=== PATIENT | female | born 1940 | race Caucasian/White ===

== ENCOUNTER 2022-02-03 23:06 | Inpatient (IN) | payer OTHER ==
[~2022-02-03] VITALS: Ht 160 cm; Wt 84.1 kg
[2022-02-04 00:02] LABS: Basophils # (auto) 0 10 ^3/uL (0-0.2); Basophils % (auto) 0.2 % (0.0-2.0); Eosinophils # (auto) 0 10 ^3/uL (0-0.8); Eosinophils % (auto) 0.1 % (0.0-7.0); Hematocrit 42.3 % (36.0-46.0); Hemoglobin 14.1 g/dL (12.2-16.2); Lymphocytes # (auto) 0.4 10 ^3/uL (0.4-5.4); Lymphocytes % (auto) 2.6 % (10.0-50.0); Mean Corpuscular Hemoglobin 28.7 pg (28.0-32.0); Mean Corpuscular Hgb Conc. 33.3 g/dL (32.0-36.0); Mean Corpuscular Volume 86.2 fL (80.0-100.0); Monocytes % (auto) 5.8 % (0.0-12.0); Neutrophils # (auto) 15.4 10 ^3/uL (1.6-8.6); Neutrophils % (auto) 91.3 % (37.0-80.0); Red Blood Cells 4.91 10^6/uL (4.0-5.20); Red Cell Distribution Width 13.3 % (11.8-14.3); White Blood Cell 16.8 10^3/uL (4.4-10.8)
[2022-02-04 00:20] LABS: Albumin 3.3 g/dL (3.4-5.0); BUN/Creatinine Ratio 19.1; Calcium 8.6 mg/dL (8.5-10.1)
[2022-02-04 00:25] LABS: Bilirubin, Total 1.6 mg/dL (0.2-1.0); Lactic Acid w/Reflex 2.2 mmol/L (0.4-2.0); Total Protein 7.1 g/dL (6.4-8.2)
[2022-02-04 00:27] LABS: Potassium 2.8 mmol/L (3.5-5.1)
[2022-02-04] MEDS ORDERED: cefTRIAXone 1GM/50ML D5W 50 ML IV ONE (01:00)
[2022-02-04] MEDS ORDERED: SODIUM CHLORIDE 0.9% 1,000 ML IV ONE ×2 (01:00→09:30)
[2022-02-04 03:26] LABS: Alcohol, Urine < 3.0 mg/dL (0-10); Amphetamine Screen, Urine NEGATIVE (NEGATIVE); Barbiturate Scree,Urine NEGATIVE (NEGATIVE); Benzodiazephine Screen, Urine NEGATIVE (NEGATIVE); Cannabinoid Screen, Urine NEGATIVE (NEGATIVE); Cocaine Screen, Urine NEGATIVE (NEGATIVE); Opiate Scree,Urine NEGATIVE (NEGATIVE); Phencyclidine Screen, Urine NEGATIVE (NEGATIVE)
[2022-02-04 04:00] LABS: Urine Bacteria NONE SEEN /hpf (None Seen); Urine Blood 2+ /uL (Negative); Urine Mucus FEW (None Seen); Urine Specific Gravity 1.017 (1.001-1.035); Urine WBC 340 /hpf (0 - 5); Urine WBC Clumps PRESENT /hpf (None Seen)
[2022-02-04] MEDS ORDERED: CIPR500T4 PO (04:07)
[2022-02-04 06:41] LABS: Hematocrit 37.2 % (36.0-46.0); Hemoglobin 12.7 g/dL (12.2-16.2); Mean Corpuscular Hemoglobin 29.1 pg (28.0-32.0); Mean Corpuscular Hgb Conc. 34.1 g/dL (32.0-36.0); Mean Corpuscular Volume 85.3 fL (80.0-100.0); Red Blood Cells 4.37 10^6/uL (4.0-5.20); Red Cell Distribution Width 13.6 % (11.8-14.3)
[2022-02-04] MEDS: POTASSIUM CHL 20MEQ/100ML 100 ML IV SCH ×5 (06:44→19:08)
[2022-02-04 06:56] LABS: Basophils % (manual) 0 (0.0-2.0); Blast Cells 0; Eosinophils % (manual) 0 (0-7); Metamyelocytes % 0; Myelocytes % 0; Promyelocytes % 0; Reactive Lymphocytes 0
[2022-02-04 07:02] LABS: INR 2.68 (0.9-1.15)
[2022-02-04 07:18] LABS: Albumin 2.7 g/dL (3.4-5.0); Calcium 7.7 mg/dL (8.5-10.1); Magnesium 1.5 mg/dL (1.6-2.6)
[2022-02-04 07:24] LABS: Bilirubin, Total 1.5 mg/dL (0.2-1.0); Total Protein 6.2 g/dL (6.4-8.2)
[2022-02-04 07:25] LABS: Potassium 2.6 mmol/L (3.5-5.1)
[2022-02-04 07:36] LABS: Band Neutrophils % (manual) 30; Lymphocytes % (manual) 8 (10.0-50.0); Monocytes % (manual) 3 (0-12)
[2022-02-04] MEDS: AMIODARONE 450mg/250ml AE 250 ML IV SCH ×3 (08:30→18:53)
[2022-02-04] MEDS ORDERED: AMIODARONE HCL 150 MG in D5W 5% 100 ML IV ONE (08:30)
[2022-02-04] MEDS ORDERED: POTASSIUM EFFERVESENT TAB 25 MEQ PO ONE (09:30)
[2022-02-04] MEDS: levoFLOXacin 500MG 100 ML IV SCH (10:00)
[2022-02-04] MEDS ORDERED: WARF6TAB21 PO (10:52)
[2022-02-04 12:00] VITALS: BP 97/64
[2022-02-04] MEDS: MAGNESIUM SULFATE 1GM/100ML 100 ML IV SCH ×3 (14:24→19:08)
[2022-02-04 14:59] LABS: Calcium 7.6 mg/dL (8.5-10.1); Magnesium 1.5 mg/dL (1.6-2.6)
[2022-02-04 15:01] LABS: BUN/Creatinine Ratio 15.5
[2022-02-04 15:28] LABS: Potassium 2.8 mmol/L (3.5-5.1)
[2022-02-04 16:00] VITALS: BP 102/61
[2022-02-04] MEDS ORDERED: MAGNESIUM SULFATE 1GM/100ML 100 ML IV ONE (16:56)
[2022-02-04] MEDS: METOPROLOL TARTRATE 25 MG TAB PO SCH ×2 (18:53→21:41)
[2022-02-04 21:50] VITALS: BP 107/71
[2022-02-05 05:00] VITALS: BP 124/77
[2022-02-05] MEDS: AMIODARONE 450mg/250ml AE 250 ML IV SCH ×2 (05:53→21:58)
[2022-02-05 06:45] LABS: Basophils # (auto) 0 10 ^3/uL (0-0.2); Basophils % (auto) 0.1 % (0.0-2.0); Eosinophils # (auto) 0.1 10 ^3/uL (0-0.8); Eosinophils % (auto) 0.4 % (0.0-7.0); Hemoglobin 12.2 g/dL (12.2-16.2); Lymphocytes # (auto) 0.9 10 ^3/uL (0.4-5.4); Lymphocytes % (auto) 7.5 % (10.0-50.0); Mean Corpuscular Hemoglobin 29.2 pg (28.0-32.0); Mean Corpuscular Volume 85.8 fL (80.0-100.0); Monocytes % (auto) 8.4 % (0.0-12.0); Neutrophils # (auto) 10.3 10 ^3/uL (1.6-8.6); Neutrophils % (auto) 83.6 % (37.0-80.0); Red Blood Cells 4.19 10^6/uL (4.0-5.20); Red Cell Distribution Width 13.8 % (11.8-14.3); White Blood Cell 12.3 10^3/uL (4.4-10.8)
[2022-02-05 07:05] LABS: Potassium 3.3 mmol/L (3.5-5.1)
[2022-02-05 07:10] LABS: BUN/Creatinine Ratio 15.6
[2022-02-05 08:00] VITALS: BP 149/98
[2022-02-05] MEDS ORDERED: POTASSIUM EFFERVESENT TAB 25 MEQ PO ONE (08:30)
[2022-02-05 12:00] VITALS: BP 136/93
[2022-02-05] MEDS: levoFLOXacin 500MG 100 ML IV SCH (12:00)
[2022-02-05] MEDS: METOPROLOL TARTRATE 25 MG TAB PO SCH ×2 (12:02→21:27)
[2022-02-05 16:00] VITALS: BP 147/93
[2022-02-05 22:00] VITALS: BP 135/77
[2022-02-06 05:00] VITALS: BP 138/88
[2022-02-06] MEDS: levoFLOXacin 500MG 100 ML IV SCH (09:43)
[2022-02-06] MEDS ORDERED: METOPROLOL TARTRATE 25 MG TAB PO SCH (10:00)
[2022-02-06 10:58] LABS: Basophils # (auto) 0.1 10 ^3/uL (0-0.2); Basophils % (auto) 0.8 % (0.0-2.0); Eosinophils # (auto) 0 10 ^3/uL (0-0.8); Eosinophils % (auto) 0.1 % (0.0-7.0); Hematocrit 36.9 % (36.0-46.0); Hemoglobin 12.5 g/dL (12.2-16.2); Lymphocytes # (auto) 0.9 10 ^3/uL (0.4-5.4); Lymphocytes % (auto) 9.3 % (10.0-50.0); Mean Corpuscular Hgb Conc. 33.8 g/dL (32.0-36.0); Mean Corpuscular Volume 85.8 fL (80.0-100.0); Monocytes # (auto) 0.7 10 ^3/uL (0-1.3); Monocytes % (auto) 7.6 % (0.0-12.0); Neutrophils % (auto) 82.2 % (37.0-80.0); Red Cell Distribution Width 13.6 % (11.8-14.3); White Blood Cell 9.8 10^3/uL (4.4-10.8)
[2022-02-06] MEDS ORDERED: DIGOXIN (250MCG/ML) 2 ML AMPULE IV ONE (11:00)
[2022-02-06] MEDS ORDERED: AMIODARONE HCL 200 MG TAB PO SCH (11:00)
[2022-02-06 11:18] LABS: Albumin 2.6 g/dL (3.4-5.0); Calcium 8.3 mg/dL (8.5-10.1); Potassium 4.6 mmol/L (3.5-5.1)
[2022-02-06 11:21] LABS: Bilirubin, Total 1.8 mg/dL (0.2-1.0); Total Protein 6.9 g/dL (6.4-8.2)
[2022-02-06] MEDS ORDERED: NITROGLYCERIN 2% OINT 1GM PKG TD SCH ×2 (13:00→13:45)
[2022-02-06] MEDS ORDERED: MET25T PO (14:34)
[2022-02-06] MEDS ORDERED: ENOX80IN SC (14:34)
[2022-02-06] MEDS ORDERED: AMIO200T4 PO (14:34)
[2022-02-06 15:45] VITALS: BP 139/94
[2022-02-06] MEDS ORDERED: NITROGLYCERIN 2% OINT 1GM PKG TD PRN (20:45)
== END 2022-02-06 17:07 | disposition home or self-care (01) | DRG 872 ==
LOC: ER 23:06 → EDSEX 23:06 → EDBD 23:06 → OVERFLOW 02-04 06:03 → CENTRAL 02-04 10:15 → TELE-CENTR 02-04 11:49
PROVIDERS: ADMIT Internal Medicine; ATTEND Hospitalist
DX: A41.9 Sepsis, unspecified organism (principal); N39.0 Urinary tract infection, site not specified; R65.20 Severe sepsis without septic shock; I48.91 Unspecified atrial fibrillation; R74.01 Elevation of levels of liver transaminase levels; Z20.822 Contact with and (suspected) exposure to COVID-19; I10 Essential (primary) hypertension; Z79.01 Long term (current) use of anticoagulants; Z80.0 Family history of malignant neoplasm of digestive organs
CPT/HCPCS: 36415; 70450; 74176; 76705; 80048; 80053; 80307; 81001; 83605; 83735; 83880; 84484; 85007; 85025; 85027; 85610; 87040; 87086; 93005; 93306; 96365; 96367; 96375; G0378; J0696; J1956; J3480; J7060